=== PATIENT | female | born 1955 | race Caucasian/White ===

== ENCOUNTER 2017-04-19 04:36 | Emergency (ER) | payer MEDICARE, OTHER ==
[~2017-04-19] VITALS: Ht 157.5 cm; Wt 72.7 kg
[~2017-04-19 04:36] MED LIST: HCTZ25T; HYDR-565
[2017-04-19] MEDS ORDERED: ondansetron/PF 4mg/2ml inj IV ONE (04:55)
[2017-04-19] MEDS ORDERED: normal saline 1000ML IV soln IVB ONE (04:55)
[2017-04-19] MEDS ORDERED: LORazepam 2 mg/ml vial IV ONE (04:55)
[2017-04-19] MEDS ORDERED: metoclopramide 5 mg/ml inj IV ONE (04:55)
[2017-04-19] MEDS ORDERED: pantoprazole 40 MG vial IV ONE (04:55)
[2017-04-19] MEDS ORDERED: OMEP40CA37 PO (05:48)
[2017-04-19] MEDS ORDERED: ONDA8TAB6 PO (05:48)
[2017-04-19 05:53] LABS: BASOPHILS # (AUTO) 0.1 X10'3 (0-0.2); BASOPHILS % (AUTO) 0.4 % (0-1); EOSINOPHILS # (AUTO) 0.1 X10'3 (0-0.9); HEMATOCRIT 38.8 % (35.0-45.0); HEMOGLOBIN 13.3 g/dl (12.0-16.0); LYMPHOCYTES # (AUTO) 0.9 X10'3 (1.1-4.8); LYMPHOCYTES % (AUTO) 6.9 % (21-51); MEAN CORPUSCULAR HEMOGLOBIN 30.1 PG (27.0-31.0); MEAN CORPUSCULAR HGB CONC 34.2 % (33.0-36.5); MEAN PLATELET VOLUME 9.7 FL (7.4-10.4); MONOCYTES # (AUTO) 0.2 X10'3 (0-0.9); MONOCYTES % (AUTO) 1.7 % (2-12); NEUTROPHILS # (AUTO) 11.9 X10'3 (1.8-7.7); PLATELET COUNT 337 X10'3 (140-440); RED BLOOD COUNT 4.41 X10'6 (4.20-5.60); RED CELL DISTRIBUTION WIDTH 13.8 % (11.5-14.5); WHITE BLOOD COUNT 13.2 X10'3 (4.5-11.0)
[2017-04-19 06:01] LABS: ALANINE AMINOTRANSFERASE 38 U/L (12-78); ALBUMIN 3.9 G/DL (3.4-5.0); ALBUMIN/GLOBULIN RATIO 1.1 (1.1-1.5); ALKALINE PHOSPHATASE 97 IU/L (46-116); ANION GAP 14 (8-16); ASPARTATE AMINO TRANSFERASE 26 U/L (10-37); BILIRUBIN,TOTAL 0.6 MG/DL (0.1-1.0); BLOOD UREA NITROGEN 9 MG/DL (7-18); BUN/CREATININE RATIO 11.5 (6.6-38.0); CALCIUM 9.1 MG/DL (8.5-10.1); CHLORIDE 108 MMOL/L (99-107); CREATININE 0.78 MG/DL (0.40-0.90); GLUCOSE 150 MG/DL (70-104); LIPASE 117 U/L (73-393); POTASSIUM 3.3 MMOL/L (3.5-5.1); SODIUM 146 MMOL/L (135-145); TOTAL PROTEIN 7.4 G/DL (6.4-8.2); eGFR 75 ML/MIN
[2017-04-19] MEDS ORDERED: haloperidol lactate 5mg/ml inj IM ONE (06:25)
[2017-04-19] MEDS ORDERED: LIDOcaine Viscous 15ml cup PO ONE (06:25)
[2017-04-19] MEDS ORDERED: mag hydrox/Alum hydrox/simeth 30ml oral suspension PO ONE (06:25)
[2017-04-19] MEDS ORDERED: diphenhydrAMINE 50 mg/ml inj IV ONE (07:00)
[2017-04-19 07:52] LABS: CLARITY,URINE CLEAR (Clear); COLOR,URINE STRAW (Yellow); GLUCOSE, URINE 100 mg/dl (Neg); KETONES,URINE NEGATIVE (Neg); LEUKOCYTE ESTERASE ,URINE NEGATIVE (Neg); NITRITES, URINE NEGATIVE (Neg); OCCULT BLOOD,URINE TRACE-INTACT (Neg); PROTEIN,URINE NEGATIVE (Neg); UROBILINOGEN,URINE 0.2 E.U/dL (0.2-1.0)
[2017-04-19 07:58] LABS: UA COLLECTION TYPE NON-SPECIFIED
[2017-04-19 08:01] LABS: BACTERIA,URINE NONE SEEN /HPF (Neg); MUCUS STRANDS FEW /LPF (Neg); RBC,URINE 0-2 /HPF (0-2); SQUAMOUS EPITHELIAL CELL,UR FEW /LPF (FEW); WBC,URINE 0-4 /HPF (0-4)
[2017-04-19] MEDS ORDERED: fentaNYL/PF 50MCG/1 ML 2ML syringe IV ONE (08:30)
[2017-04-19] MEDS ORDERED: PROM25SU46 RC (09:33)
[2017-04-19 09:37] VITALS: BP 109/59
== END 2017-04-19 09:51 | disposition home or self-care (01) ==
LOC: ER 04:37
DX: R10.13 Epigastric pain (principal); R11.2 Nausea with vomiting, unspecified; R50.9 Fever, unspecified; R07.9 Chest pain, unspecified; M54.9 Dorsalgia, unspecified; Z88.5 Allergy status to narcotic agent
CPT/HCPCS: 36415; 71010; 80053; 81001; 83690; 83735; 84484; 85025; 93005; 96361; 96372; 96374; 96375; 99285; C9113; J1200; J1630; J2060; J2405; J2765; J3010; J7030